=== PATIENT | female | born 1960 | race Caucasian/White ===

== ENCOUNTER → 2017-09-21 | Outpatient (REF) | payer SELFPAY, BC | LOC: M LAB REF 09-22 15:37 | DX: N60.11 Diffuse cystic mastopathy of right breast (principal) | CPT/HCPCS: 88305 ==

== ENCOUNTER → 2018-10-26 | Outpatient (CLI) | payer OTHER ==
[2018-10-26 19:23] LABS: BLOOD UREA NITROGEN 18 MG/DL (7-18); CREATININE FOR GFR 0.88 MG/DL (0.55-1.30); GLOMERULAR FILTRATION RATE > 60.0 (>51)
== END ==
LOC: M WUC 17:06
PROVIDERS: ATTEND Specialist
DX: Z80.3 Family history of malignant neoplasm of breast (principal)

== ENCOUNTER → 2018-11-15 | Outpatient (CLI) | payer OTHER ==
[~2018-11-15] MED LIST: PROHANCE 279.3MG/ML 15ML VIAL (A9576) As Ordered ONE; PROHANCE 279.3MG/ML 5ML VIAL (A9576) As Ordered ONE
== END ==
LOC: M RAD 15:41
PROVIDERS: ATTEND Specialist
DX: Z80.3 Family history of malignant neoplasm of breast (principal)
CPT/HCPCS: A9576 ×2

== ENCOUNTER → 2019-06-09 | Outpatient (CLI) | payer OTHER ==
[~2019-06-09] MED LIST changes: +GLUCCAP23 PO; +LOSA50TA88 PO; +MULTCAP PO; -PROHANCE 279.3MG/ML 15ML VIAL (A9576) As Ordered ONE; -PROHANCE 279.3MG/ML 5ML VIAL (A9576) As Ordered ONE; +UBIQ200C PO; +VITA-157 PO; +VITA500C24 PO
== END ==
LOC: M ONCR 10:07
PROVIDERS: ATTEND Radiology Radiation Oncology
DX: Z53.9 Procedure and treatment not carried out, unspecified reason (principal)

== ENCOUNTER 2019-06-12 14:43 | Outpatient (RCR) | payer OTHER ==
[2019-06-12 15:35] LABS: BASO # 0.1 10^3/uL (0.0-0.2); BASO % 0.7 % (0.0-1.0); EOS # 0.3 10^3/uL (0.0-0.5); EOS % 2.9 % (0.0-3.0); HEMATOCRIT 40.8 % (36.0-47.0); HEMOGLOBIN 13.2 g/dl (12.0-15.5); LYMPH # 4.1 10^3/uL (1.5-5.0); LYMPH % 36.7 % (24.0-44.0); MEAN CORPUSCULAR HEMOGLOBIN 30.2 pg (27.0-33.0); MEAN CORPUSCULAR HGB CONC 32.4 g/dl (32.0-36.5); MEAN CORPUSCULAR VOLUME 93.4 fl (80.0-96.0); MONO # 0.6 10^3/uL (0.0-0.8); MONO % 5.5 % (0.0-5.0); NEUTROPHILS % 53.9 % (36.0-66.0); PLATELET COUNT, AUTOMATED 321 10^3/uL (150-450); RED BLOOD COUNT 4.37 10^6/uL (4.00-5.40); WHITE BLOOD COUNT 11.2 10^3/uL (4.0-10.0)
--- NOTE | 2019-06-14 09:09 | RADONC ---
RADIATION ONCOLOGY SIMULATION NOTE DATE OF SERVICE: 06/12/2019 CHART NUMBER: [id number] Ms. Mesa was taken to the CT scan for CT simulation of her right breast field. CT was accomplished without difficulty or discomfort. Radiation treatment planning is underway and radiation treatments will begin subsequently. I was physically present throughout the course of CT simulation. An immobilization device was created and will be used throughout the course of treatment. It was created without difficulty or discomfort.
== END 2019-06-17 ==
LOC: M ONCR 14:43
PROVIDERS: ATTEND Radiology Radiation Oncology
DX: C50.411 Malignant neoplasm of upper-outer quadrant of right female breast (principal)

== ENCOUNTER → 2019-07-18 | Outpatient (RCR) | payer OTHER ==
--- NOTE | 2019-06-26 13:54 | RADONC ---
RADIATION ONCOLOGY PROGRESS NOTE DATE: 06/26/2019 CHART NUMBER: [id number] PROGRESS NOTE Ms. Mesa was taken to the linear accelerator today and underwent her first fraction of radiation today for a dose of 180 cGy. It was well tolerated. REVIEW OF SYSTEMS: The patient's review of systems is noncontributory. Denies nausea, vomiting, fevers, chills, night sweats, diplopia, headaches, anxiety or depression, anorexia, weight loss, visual disturbances, chest pain, urinary or bowel difficulties, bone pain, or neurological problems. PHYSICAL EXAMINATION: The patient's skin is in good condition with no clearly no evidence of radiation change present since this was her first treatment. The remainder of physical exam also remains unchanged. Ms. Mesa tolerated her first fraction quite well and radiation will continue as scheduled.
--- NOTE | 2019-07-05 08:10 | RADONC ---
RADIATION ONCOLOGY PROGRESS NOTE: DATE: 07/03/2019 CHART NUMBER: [id number] Ms. Mesa is presently at a dose of 900 cGy to her right breast and is tolerating treatments quite well at this point with no complaints related to her radiation therapy. She has no breast or bone pain. REVIEW OF SYSTEMS: The patient's review of systems is noncontributory. She denies nausea, vomiting, fevers, chills, night sweats, diplopia, headaches, anxiety or depression, anorexia, weight loss, visual disturbances, chest pain, urinary or bowel difficulties, bone pain, or neurological problems. PHYSICAL EXAMINATION: The patient's skin is in good condition with no evidence of radiation change present. There is no moist or dry desquamation. The remainder of her physical exam remains unchanged. Ms. Mesa is tolerating treatments quite well and radiation will continue as scheduled.
--- NOTE | 2019-07-14 09:41 | RADONC ---
RADIATION ONCOLOGY PROGRESS NOTE DATE: 07/10/2019 Keila Mesa, with a diagnosis of right breast cancer, is currently receiving local regional radiotherapy, and she has a achieved a dose thus far of 1800 cGy. She has no skin reaction whatsoever and denies any nausea, vomiting, coughing, sputum production, or hemoptysis. Her energy level is such that she is able to maintain most of her day-to-day activities without any alteration of her lifestyle. Skin irritation is completely denied. EXAMINATION FINDINGS: Skin within the irradiated volume shows neither erythema nor desquamation. Lymphatics: No palpable peripheral lymphadenopathy is appreciated. Lungs are clear. The remainder of the physical examination is unchanged. IMPRESSION: Tolerating therapy well. PLAN: Treatments to continue. MTDD
--- NOTE | 2019-07-17 15:55 | RADONC ---
RADIATION ONCOLOGY PROGRESS NOTE DATE: 07/17/2019 CHART NUMBER: [id number] Mrs. Mesa with a diagnosis of a stage [id number], grade 2, HER2/felix negative tumor located in the upper outer quadrant of the right breast is currently receiving local regional radiotherapy and she has achieved a dose of 2340 cGy of an anticipated 4860 cGy with an anticipated boost to possibly be delivered thereafter to the scar site. She is tolerating her radiotherapy well, denying any nausea, vomiting, coughing, sputum production or hemoptysis. Her energy level is excellent and she is able to my maintain most of her day-to-day activities without any alteration of her lifestyle. She does not report any skin irritation. EXAMINATION FINDINGS: The skin within the irradiated volume shows only a mild very faint erythematous blush with no focal desquamation. There is no palpable peripheral lymphadenopathy. The remainder of the physical examination is unchanged. IMPRESSION: Tolerating therapy well. PLAN: Treatments to continue.
== END ==
LOC: M ONCR 06-20 12:33
PROVIDERS: ATTEND Radiology Radiation Oncology
DX: C50.411 Malignant neoplasm of upper-outer quadrant of right female breast (principal)

== ENCOUNTER 2019-08-16 14:27 | Outpatient (RCR) | payer BC, OTHER ==
--- NOTE | 2019-07-25 09:22 | RADONC ---
RADIATION ONCOLOGY PROGRESS NOTE: DATE: 07/24/2019 CHART NUMBER: [id number] Ms. Mesa is presently at a dose of 3060 cGy to her right breast and is tolerating treatments quite well at this point with no significant difficulties related to her radiation therapy. She has some tenderness of the skin but no other breast or bone pain. REVIEW OF SYSTEMS: The patient's review of systems is noncontributory. She denies nausea, vomiting, fevers, chills, night sweats, diplopia, headaches, anxiety or depression, anorexia, weight loss, visual disturbances, chest pain, urinary or bowel difficulties, bone pain, or neurological problems.. PHYSICAL EXAMINATION: The patient's skin shows some erythema but overall is in good condition with no evidence of moist or dry desquamation. The remainder of her physical exam remains unchanged. Ms. Mesa is tolerating treatments quite well and radiation will continue as scheduled.
--- NOTE | 2019-08-01 09:44 | RADONC ---
RADIATION ONCOLOGY SIMULATION NOTE DATE: 07/31/2019 CHART NUMBER: [id number] SIMULATION NOTE: Ms. Mesa was taken to the linear accelerator today for clinical setup of her right breast primary site electron beam boost field. Setup was accomplished without difficulty or discomfort. Radiation treatment planning is underway and radiation treatments will begin subsequently. An immobilization device was created without difficulty or discomfort. It will be used throughout the course of treatment. I was physically present throughout the course of clinical setup simulation.
--- NOTE | 2019-08-01 09:47 | RADONC ---
RADIATION ONCOLOGY PROGRESS NOTE DATE: 07/31/2019 CHART NUMBER: [id number] PROGRESS NOTE: Ms. Mesa is presently at a dose of 3960 cGy to her right breast and is tolerating her treatment fairly well with some discomfort of the skin especially in the axillary inframammary regions. REVIEW OF SYSTEMS: The patient's review of systems is positive for skin/breast discomfort but is otherwise noncontributory. Denies nausea, vomiting, fevers, chills, night sweats, diplopia, headaches, anxiety or depression, anorexia, weight loss, visual disturbances, chest pain, urinary or bowel difficulties, bone pain, or neurological problems. PHYSICAL EXAMINATION: The patient's skin shows erythema and tanning present. There is some evidence of desquamation in the axillary region. The remainder of physical exam remains unchanged. Ms. Mesa is continuing with radiation at this time. In the meantime, we have undertake setup for her electron coned-down.
--- NOTE | 2019-08-08 07:28 | RADONC ---
RADIATION ONCOLOGY PROGRESS NOTE DATE: 08/07/2019 CHART #: [id number] Ms. Mesa is presently at a dose of 4680 cGy to her right breast and is tolerating treatments quite well at this point with no difficulties related to her radiation therapy. She has no significant breast or bone pain. REVIEW OF SYSTEMS: The patient's review of systems is noncontributory. Denies nausea, vomiting, fevers, chills, night sweats, diplopia, headaches, anxiety or depression, anorexia, weight loss, visual disturbances, chest pain, urinary or bowel difficulties, bone pain, or neurological problems. PHYSICAL EXAMINATION: The patient's skin is in good condition with no evidence of moist or dry desquamation. There is tanning and erythema present. The remainder of her physical exam remains unchanged. Ms. Mesa is tolerating treatments quite well and radiation will continue as scheduled.
--- NOTE | 2019-08-16 08:22 | RADONC ---
RADIATION ONCOLOGY PROGRESS NOTE DATE: 08/14/2019 CHART NUMBER: [id number] PROGRESS NOTE: Ms. Mesa is presently at a dose of 5660 cGy to her right breast primary site and is tolerating treatments quite well at this point with no complaints at this time related to her radiation therapy or disease. She is having no significant discomfort or other problems. REVIEW OF SYSTEMS: The patient's review of systems is noncontributory. Denies nausea, vomiting, fevers, chills, night sweats, diplopia, headaches, anxiety or depression, anorexia, weight loss, visual disturbances, chest pain, urinary or bowel difficulties, bone pain, or neurological problems. PHYSICAL EXAMINATION: The patient's skin overall is in good condition with some erythema and tanning present. She has a small area of desquamation present in the inframammary region. The remainder of her physical exam remains unchanged. Ms. Mesa is tolerating treatments quite well and radiation will continue as scheduled.
--- NOTE | 2019-08-17 11:39 | RADONC ---
RADIATION ONCOLOGY TREATMENT SUMMARY DATE OF SERVICE: 08/16/2019 CHART NUMBER: [id number]. DIAGNOSIS Right breast cancer. STAGE: IA, [id number], grade 2, ER positive, CT positive, HER2/felix negative, Oncotype recurrence score 1. ECOG PERFORMANCE STATUS: 0. TREATMENT SUMMARY: Ms. Mesa is a very pleasant 58-year-old white female with the diagnosis of what appears to be a stage IA, [id number] moderately differentiated invasive lobular carcinoma of the right breast, who presented to us status post lumpectomy and sentinel lymph node biopsy for consideration of postoperative radiation therapy for conservative breast management. We treated the patient to the right breast for a total dose of 4860 cGy delivered in 27 fractions of 180 cGy each over 43 elapsed days from 06/26/2019 through 08/08/2019. The patient's right breast was treated on a linear accelerator utilizing 3D conformal technique with a 6X and 10X photon beam. Medial and lateral and tangential saenz were utilized. Following completion of 4860 cGy in the entire breast, the primary site was boosted for an additional 1200 cGy delivered in six fractions of 200 cGy each over 7 elapsed days from 08/09/2019 through 08/16/2019. The patient's primary site boost was treated on a linear accelerator utilizing a 16 mev electron beam prescribed to the 90% isodose line via non phos technique. This brought the primary site to a total dose of 6060 cGy delivered in 33 fractions of 180 cGy each over 50 elapsed days from 06/26/2019 through 08/16/2019. Ms. Mesa tolerated her treatments quite well and was able to complete therapy as prescribed. I have scheduled the patient see me again in 1 month for further followup. She will also continue to be followed by her other physicians, as well. cc: MD Aodlfo Mccray MD Benjamin S. Himpler, MD
== END 2019-08-18 ==
LOC: M ONCR 14:27
PROVIDERS: ATTEND Radiology Radiation Oncology
DX: C50.411 Malignant neoplasm of upper-outer quadrant of right female breast (principal)

== ENCOUNTER → 2019-09-20 | Outpatient (CLI) | payer BC ==
--- NOTE | 2019-09-22 12:07 | RADONC ---
RADIATION ONCOLOGY FOLLOWUP NOTE DATE: 09/20/2019 CHART #: [id number] DIAGNOSIS: Right breast cancer. STAGE: I A, T1c, N0, M0, grade 2, ER positive, NH positive, HER2/felix negative, Oncotype recurrence score 1. ECOG PERFORMANCE STATUS: 0. FOLLOWUP NOTE: Ms. Mesa is a very pleasant 58-year-old white female with the diagnosis of a stage I A, T1c, N0, M0, moderately differentiated invasive lobular carcinoma of the right breast which is ER positive, NH positive and HER2/felix negative with an Oncotype score of 1 who is presenting to us today for routine followup visit 1 month post completion of external beam radiation therapy. The patient presents today reporting that she is doing quite well with no complaints at this time related to her radiation therapy or disease. She has no breast or bone pain. REVIEW OF SYSTEMS: The patient's review of systems is noncontributory. Denies nausea, vomiting, fevers, chills, night sweats, diplopia, headaches, anxiety or depression, anorexia, weight loss, visual disturbances, chest pain, urinary or bowel difficulties, bone pain, or neurological problems. PHYSICAL EXAMINATION: The patient is a well-developed, well-nourished female in no acute distress. HEENT exam is normocephalic, atraumatic. Extraocular movements are intact. There is no palpable cervical, supraclavicular, infraclavicular, axillary, or inguinal lymphadenopathy present. Lungs are clear to auscultation and percussion. Heart has a regular rate and rhythm. Abdomen is benign with no hepatosplenomegaly, masses, or tenderness. Breast examination reveals no masses or discharge bilaterally. Skeletal examination reveals no tenderness to pressure or percussion of the bony skeleton. Extremities reveal no clubbing, cyanosis, or edema. Neurologic exam is grossly intact, as is the remainder of the physical examination. ASSESSMENT: The patient is clinically doing quite well at this point. She is scheduled see her medical oncologist, Dr. Niko Thornton, in 1 and 1/2 months. She is also scheduled to see her surgeon, Dr. Erica Sanford, in the summer. In light of her close followup and management by her other physicians and my impending snf this summer, I am discharging this patient from my followup except on a p.r.n. basis. The patient does have my cell phone number and office number and is aware that I will be available to her at anytime if I could be of any assistance whatsoever.
== END ==
LOC: M ONCR 14:31
PROVIDERS: ATTEND Radiology Radiation Oncology
DX: Z08 Encounter for follow-up examination after completed treatment for malignant neoplasm (principal); C50.411 Malignant neoplasm of upper-outer quadrant of right female breast; Z92.3 Personal history of irradiation

== ENCOUNTER → 2019-11-15 | Outpatient (CLI) | payer BC ==
[2019-11-15 13:49] LABS: BASO # 0.1 10^3/uL (0.0-0.2); BASO % 0.9 % (0.0-1.0); EOS # 0.3 10^3/uL (0.0-0.5); EOS % 3.3 % (0.0-3.0); HEMATOCRIT 38.9 % (36.0-47.0); HEMOGLOBIN 12.9 g/dl (12.0-15.5); LYMPH # 2.2 10^3/uL (1.5-5.0); MEAN CORPUSCULAR HEMOGLOBIN 30.3 pg (27.0-33.0); MEAN CORPUSCULAR HGB CONC 33.2 g/dl (32.0-36.5); MEAN CORPUSCULAR VOLUME 91.3 fl (80.0-96.0); MONO # 0.5 10^3/uL (0.0-0.8); MONO % 6.3 % (0.0-5.0); NEUTROPHILS # 4.9 10^3/uL (1.5-8.5); NEUTROPHILS % 61.2 % (36.0-66.0); PLATELET COUNT, AUTOMATED 292 10^3/uL (150-450); RED BLOOD COUNT 4.26 10^6/uL (4.00-5.40)
[2019-11-15 14:11] LABS: ALBUMIN 3.7 GM/DL (3.2-5.2); ALT/SGPT 54 U/L (12-78); BILIRUBIN,TOTAL 0.4 MG/DL (0.2-1.0); BLOOD UREA NITROGEN 15 MG/DL (7-18); CALCIUM LEVEL 10.1 MG/DL (8.5-10.1); CARBON DIOXIDE LEVEL 31 MEQ/L (21-32); CHLORIDE LEVEL 104 MEQ/L (98-107); CREATININE FOR GFR 0.62 MG/DL (0.55-1.30); GLOMERULAR FILTRATION RATE > 60.0 (>51); GLUCOSE, FASTING 108 MG/DL (70-100); POTASSIUM SERUM 4.5 MEQ/L (3.5-5.1); SODIUM LEVEL 140 MEQ/L (136-145); TOTAL PROTEIN 7.3 GM/DL (6.4-8.2)
== END ==
LOC: M WUC 11:31
PROVIDERS: ATTEND Internal Medicine Hematology & Oncology
DX: D72.829 Elevated white blood cell count, unspecified (principal); C50.911 Malignant neoplasm of unspecified site of right female breast

== ENCOUNTER → 2020-10-08 | Outpatient (CLI) | payer BC ==
[~2020-10-08] MED LIST changes: -VITA-157 PO; +VITAE40CA PO
== END ==
LOC: M WUC 11:43
PROVIDERS: ATTEND Internal Medicine Pulmonary Disease
DX: R53.83 Other fatigue (principal)